=== PATIENT | female | born 1930 | race Caucasian/White ===

== ENCOUNTER → 2019-05-08 | Outpatient (CLI) | payer BC, MEDICARE ==
[2019-03-17 15:00] VITALS: BP 130/67
[~2019-05-08] MED LIST: AMLO5TAB4 PO; APIX5TAB PO; ASPI-612 PO; ATOR10TA60 PO; CONTRAST GIVEN. MC PRN; OXYB5TAB10 PO; POLY17PO29 PO
[2019-05-08] MEDS: IOHEXOL 350 MG/ML 100 ML VIAL. IV ONE (09:11)
--- NOTE | 2019-05-08 09:34 | RAD ---
Examination: CT angiography chest HISTORY: History of chest pain, leg swelling COMPARISON: 03/12/2019 Technique: Axial CT angiographic images of the chest were performed with IV contrast. Coronal and sagittal reformats are performed. Exposure: One or more of the following individualized dose reduction techniques were utilized for this examination: 1. Automated exposure control 2. Adjustment of the mA and/or kV according to patient size 3. Use of iterative reconstruction technique FINDINGS: The central airways are patent. Mild cardiomegaly. Moderate aortic atherosclerosis. There is no evidence of filling defect identified in the main pulmonary arterial trunk and right and left main pulmonary arteries and the visualized lobar, segmental branches of the pulmonary arteries. Linear right lung base atelectasis. . The liver, spleen, adrenals grossly appears unremarkable. Moderate degenerative changes thoracic spine. IMPRESSION: 1. No evidence of pulmonary embolism. 2. Linear right lung base atelectasis. Electronically signed by: Ronaldo Longoria MD (05/08/2019 9:31 AM) [id number]
--- NOTE | 2019-05-08 10:25 | RAD ---
EXAMINATION: VENOUS LOWER EXT BILATERAL HISTORY: Lower extremity swelling, chest pain COMPARISON/CORRELATION: 03/13/2019 venous duplex ultrasound exam FINDINGS: Bilateral lower extremity duplex venous ultrasound exam was performed. Grayscale, color Doppler, and spectral Doppler imaging was performed. Compression and augmentation was performed. The right common femoral vein, superficial femoral vein, popliteal vein, and saphenofemoral junction are normal with no evidence of deep venous thrombus. The visualized calf veins are unremarkable. Normal compressibility and augmentation is evident. The left common femoral vein, superficial femoral vein, popliteal vein, and saphenofemoral junction are normal with no evidence of deep venous thrombus. Partial occlusive thrombus involving the left peroneal vein is present. IMPRESSION: Partially occlusive left peroneal vein deep venous thrombus is present similar to the prior exam. No new thrombus identified. Electronically signed by: Torrey Kong MD (05/08/2019 10:23 AM) [id number]
== END ==
LOC: CT 09:01
PROVIDERS: ATTEND Internal Medicine Pulmonary Disease
DX: J98.11 Atelectasis (principal); I82.452 Acute embolism and thrombosis of left peroneal vein; M79.89 Other specified soft tissue disorders
CPT/HCPCS: 71275; 93970; Q9967